=== PATIENT | male | born 1955 | race Caucasian/White ===

== ENCOUNTER 2018-01-07 05:46 | Day surgery (SDC) | payer BC ==
[~2018-01-07] VITALS: Ht 177.8 cm; Wt 90.7 kg
[~2018-01-07 05:46] MED LIST: AMBIEN5 MG PO; ASPIRIN81 MG PO; ERYTHROMYCIN BAS1 GM OS; LEXAPRO10 MG PO; LORAZEPAM0.5 MG PO; METO50TA52 PO; OMEPRAZOLE20 MG PO; SIMVASTATIN40 MG PO
[2018-01-07] MEDS ORDERED: ATORVASTATIN CA40 MG PO (06:18)
[2018-01-07] MEDS ORDERED: ZESTRIL10 M1 PO (06:19)
[2018-01-07 07:54] VITALS: BP 129/79
== END 2018-01-07 08:06 | disposition home or self-care (01) | DRG 951 ==
LOC: ENDO 05:46 → ORM 07:30 → ENDO 07:30
PROVIDERS: ATTEND Surgery
PROC: 0DJD8ZZ Inspection of Lower Intestinal Tract, Via Natural or Artificial Opening Endoscopic (ICD-10-PCS; principal; 2018-01-07)
PROC: 0DB78ZX Excision of Stomach, Pylorus, Via Natural or Artificial Opening Endoscopic, Diagnostic (ICD-10-PCS; 2018-01-07)
DX: Z12.11 Encounter for screening for malignant neoplasm of colon (principal); K57.30 Diverticulosis of large intestine without perforation or abscess without bleeding; K64.8 Other hemorrhoids; R11.10 Vomiting, unspecified; K29.70 Gastritis, unspecified, without bleeding; K44.9 Diaphragmatic hernia without obstruction or gangrene; E78.5 Hyperlipidemia, unspecified; I10 Essential (primary) hypertension; K21.9 Gastro-esophageal reflux disease without esophagitis